=== PATIENT | female | born 1935 | race African-American/Black ===

== ENCOUNTER → 2016-08-20 11:13 | Outpatient (CLI) | payer MEDICARE, BC | END | disposition home or self-care (01) | LOC: D.RT 11:00 | DX: J45.991 Cough variant asthma (principal) ==

== ENCOUNTER → 2017-10-31 10:01 | Outpatient (CLI) | payer MEDICARE, BC | END | disposition home or self-care (01) | LOC: D.RT 09:00 | DX: J45.991 Cough variant asthma (principal) ==

== ENCOUNTER → 2018-08-01 07:54 | Outpatient (CLI) | payer MEDICARE, BC ==
[2018-08-01 11:13] LABS: BASOPHILS 0.7 % (0-2); EOSINOPHILS 2.2 % (0-7); HEMATOCRIT 36.3 % (36.0-48.0); HEMOGLOBIN 11.1 g/dL (12-16); IMMATURE GRANULOCYTES 0.2 % (0-5); LYMPHOCYTES 33.8 % (15-50); MCH 25.8 pg (26.0-34.0); MCHC 30.6 g/dL (31.0-37.0); MCV 84.4 fL (80.0-100.0); MEAN PLATELET VOLUME 11.1 fL (7.4-10.4); MONOCYTES 11.5 % (2-11); NEUTROPHILS 51.6 % (40-80); PLATELET COUNT 217 10x3/uL (130-400); RDW 14.5 % (11.5-14.5); WBC 4.2 10x3/uL (4.8-10.8)
== END | disposition home or self-care (01) ==
LOC: D.RAD 07-14 09:30 → D.LAB 07-14 09:45 → D.RAD 07-17 08:00 → D.LAB 07-17 08:45 → D.RAD 07:54
PROVIDERS: Internal Medicine Pulmonary Disease
DX: J18.9 Pneumonia, unspecified organism (principal)